=== PATIENT | female | born 1965 | race African-American/Black ===

== ENCOUNTER 2016-12-25 19:22 | Emergency (ER) | payer OTHER ==
[2016-12-25 19:31] VITALS: BP 141/76; BMI 27.3
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
[2016-12-25] MEDS ORDERED: TORADOL 30 MG VIAL IM ONE (20:56)
[2016-12-25] MEDS ORDERED: NORCO 5/325 MG TAB PO ONE (20:56)
[2016-12-25] MEDS ORDERED: NORCO 5/325 MG TAB ONE (20:59)
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
[2016-12-25] MEDS ORDERED: TORADOL 30 MG VIAL ONE (21:52)
== END 2016-12-25 23:21 | disposition home or self-care (01) ==
LOC: ER 19:38
DX: Z04.3 Encounter for examination and observation following other accident (principal); S09.8XXA Other specified injuries of head, initial encounter; M54.2 Cervicalgia; V49.9XXA Car occupant (driver) (passenger) injured in unspecified traffic accident, initial encounter
CPT/HCPCS: 70450; 96372; 99283; J1885

== ENCOUNTER 2017-05-02 14:55 | Emergency (ER) | payer OTHER ==
[2017-05-02 15:00] VITALS: BP 117/75; BMI 27.3
[2017-05-02] MEDS ORDERED: TORADOL 60 MG VIAL IM ONE (15:29)
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
[2017-05-02] MEDS ORDERED: TESSALON PERLES PO ONE (15:31)
[2017-05-02] MEDS ORDERED: TORADOL 60 MG VIAL ONE (15:44)
== END 2017-05-02 16:32 | disposition home or self-care (01) ==
LOC: ER 15:04
DX: S16.1XXA Strain of muscle, fascia and tendon at neck level, initial encounter (principal); J40 Bronchitis, not specified as acute or chronic; X58.XXXA Exposure to other specified factors, initial encounter; Y92.9 Unspecified place or not applicable
CPT/HCPCS: 96372; 99282; J1885